=== PATIENT | female | born 1950 | race Caucasian/White ===

== ENCOUNTER → 2016-07-14 | Outpatient (CLI) | payer OTHER ==
[2013-01-18 18:41] VITALS: BP 122/62
--- NOTE | 2016-07-14 14:36 | RAD ---
History: Low back pain. Study: Five views lumbar spine including AP and lateral neutral flexion and extension views Comparison: October 15, 2015 Findings: There are posterior fusion rods and screws from L1-L3 with anatomical alignment. There are disk spacers at L3-4 and L4-5 as before. There is normal mobility on flexion and extension without subluxation. There is severe L1-2 disc space narrowing. There is vascular calcification without aneu rysm. There are surgical clips in the region of the gastroesophageal junction. There is a partially visualized left hip prosthesis. Impression: Postsurgical changes in upper lumbar posterior fusion in anatomical alignment and stable on flexion and extension. Reported By:
== END ==
LOC: RAD 10:57
PROVIDERS: ATTEND Neurological Surgery
DX: M54.17 Radiculopathy, lumbosacral region (principal)
CPT/HCPCS: 72120

== ENCOUNTER → 2016-08-17 | Outpatient (CLI) | payer OTHER ==
[2013-01-18 18:41] VITALS: BP 122/62
--- NOTE | 2016-08-18 08:38 | VAS ---
HISTORY: Left leg edema. Study: Bilateral lower extremity ultrasound. Comparison: None. TECHNIQUE: Multiple leos scale and color flow Doppler images of the deep venous system were obtaine d of the right and left lower extremity. FINDINGS: The deep venous system of the right and left lower extremities were evaluated from the level of the common femoral vein through the popliteal vein. Normal color flow and augmentation can be observed. In addition, normal compression is seen throughout the deep venous system. IMPRESSION: 1. Negative for DVT. Reported By:
== END ==
LOC: RAD 17:08
PROVIDERS: ATTEND Nurse Practitioner Family
DX: R60.0 Localized edema (principal); M79.604 Pain in right leg; M79.605 Pain in left leg
CPT/HCPCS: 93970

== ENCOUNTER 2016-09-07 09:13 | Inpatient (IN) | payer OTHER ==
[2016-09-07] MEDS ORDERED: PHENERGAN INJ 25 MG IV PRN (09:46)
[2016-09-07] MEDS ORDERED: LEVAQUIN PREMIX IV 500 MG 500 MG/100 ML BAG IV ONE (09:46)
[2016-09-07] MEDS ORDERED: PEPCID 20 MG IV PREMIX* 20 MG/50 ML BAG IV SCH (10:00)
[2016-09-07 10:53] LABS: BILIRUBIN,URINE NEGATIVE (NEGATIVE); BLOOD/HEMOGLOBIN,URINE 1+ (NEGATIVE); GLUCOSE, URINE NEGATIVE (NEGATIVE); KETONES,URINE NEGATIVE (NEGATIVE); LEUKOCYTE ESTERASE ,URINE 1+ (NEGATIVE); NITRITES,URINE POSITIVE (NEGATIVE); PROTEIN,URINE NEGATIVE (NEGATIVE); UROBILINOGEN,URINE NORMAL (NORMAL)
[2016-09-07 10:59] LABS: APPEARANCE,URINE HAZY (CLEAR); COLOR,URINE YELLOW (YELLOW)
[2016-09-07 11:00] LABS: BACTERIA,URINE 3+ /HPF (NEGATIVE); RBC,URINE 0 /HPF (NEGATIVE); SQUAMOUS EPITHELIAL CELL,UR RARE /HPF (NEGATIVE)
--- NOTE | 2016-09-07 11:05 | VAS ---
HISTORY: Bilateral lower extremity edema. Study: Bilateral lower extremity ultrasound Comparison: Bilateral lower extremity ultrasound dated August 17, 2016. TECHNIQUE: Multiple leos scale and color flow Doppler images of the deep venous system were obtaine d of the bilateral lower extremity. FINDINGS: The deep venous system of the right and left lower extremities were evaluated from the level of the common femoral vein through the popliteal vein. Normal color flow and augmentation can be observed. In addition, normal compression is seen throughout the deep venous system. IMPRESSION: 1. Negative for DVT. Reported By:
--- NOTE | 2016-09-07 11:05 | RAD ---
HISTORY: Bilateral lower extremity edema Study: Chest 1-view Comparison: May 03, 2016 Findings: The trachea is midline. The cardiac silhouette is unremarkable. The lungs are mildly hyperinflated but free of acute alveolar infiltrates. No pleural effusions are identified. The bony thorax is un remarkable. IMPRESSION: Lungs mildly hyperinflated but clear Reported By:
[2016-09-07 11:06] LABS: ALANINE AMINOTRANSFERASE 19 Units/L (12-78); ALBUMIN 2.4 g/dL (3.4-5.0); ALKALINE PHOSPHATASE 95 Units/L (46-116); ASPARTATE AMINO TRANSFERASE 19 Units/L (15-37); BLOOD UREA NITROGEN 32 mg/dL (7-18); CALCIUM 7.7 mg/dL (8.5-10.1); CARBON DIOXIDE 24.7 mmol/L (21-32); CHLORIDE 109 mmol/L (98-107); CREATININE 1.19 mg/dL (0.55-1.02); GLUCOSE 103 mg/dL (65-99); SODIUM 141 mmol/L (136-145); TOTAL PROTEIN 6.1 g/dL (6.4-8.2); eGFR BLACK RACES 58 (>60); eGFR NON BLACK RACES 48 (>60)
[2016-09-07 11:07] LABS: BASOPHILS # (AUTO) 0.1 X10^3/uL (0.0-0.1); BASOPHILS % (AUTO) 0.6 % (0.2-1.0); EOSINOPHILS # (AUTO) 0.1 x10^3/uL (0.0-0.2); EOSINOPHILS % (AUTO) 0.6 % (0.9-2.9); HEMOGLOBIN 10.6 g/dL (12.0-16.0); LYMPHOCYTES % (AUTO) 8.8 % (21.0-51.0); MEAN CORPUSCULAR HEMOGLOBIN 32.1 pg (27.0-34.0); MEAN CORPUSCULAR HGB CONC 33.1 g/dL (33.0-35.0); MEAN PLATELET VOLUME 8.1 fL (7.4-11.0); MONOCYTES # (AUTO) 0.9 x10^3/uL (0.3-0.8); MONOCYTES % (AUTO) 7.5 % (0.0-13.0); NEUTROPHILS # (AUTO) 9.7 x10^3/uL (2.2-4.8); NEUTROPHILS % (AUTO) 82.5 % (42.0-75.0); PLATELET COUNT 453 X10^3/uL (150.0-450.0); RED BLOOD COUNT 3.29 X10^6/uL (3.5-5.4); RED CELL DISTRIBUTION WIDTH 15.1 % (11.6-16.5); WHITE BLOOD COUNT 11.7 X10^3/uL (3.6-10.0)
[2016-09-07] MEDS: LASIX IVP SCH ×2 (11:08→20:50)
[2016-09-07] MEDS ORDERED: NS 100 ML IV 100 ML IV ONE (11:10)
[2016-09-07 11:25] VITALS: BMI 23.3
[2016-09-07] MEDS ORDERED: PREVNAR 13 IM ONE (11:25)
[2016-09-07] MEDS ORDERED: AMBIEN PO PRN (11:30)
[2016-09-07] MEDS ORDERED: ATIVAN TAB 1 MG PO PRN (11:30)
[2016-09-07] MEDS ORDERED: VALIUM PO PRN (11:43)
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
[2016-09-07] MEDS: PERCOCET TAB 5/325 MG PO PRN ×2 (18:47→22:33)
[2016-09-07] MEDS ORDERED: KLONOPIN TAB 1 MG PO SCH (21:00)
[2016-09-07] MEDS ORDERED: ELAVIL PO SCH (21:00)
[2016-09-07] MEDS ORDERED: PATIENT'S HOME MEDICATION PO SCH (21:00)
[2016-09-07] MEDS ORDERED: FLOMAX PO SCH (21:00)
[2016-09-07] MEDS ORDERED: DESYREL PO SCH (21:00)
[2016-09-07] MEDS ORDERED: COLACE CAP 100 MG PO PRN (22:02)
[2016-09-07] MEDS ORDERED: MILK OF MAGNESIA PO PRN (22:02)
[2016-09-08 05:44] LABS: ALANINE AMINOTRANSFERASE 17 Units/L (12-78); ALBUMIN 2.5 g/dL (3.4-5.0); ALKALINE PHOSPHATASE 95 Units/L (46-116); ASPARTATE AMINO TRANSFERASE 17 Units/L (15-37); BLOOD UREA NITROGEN 32 mg/dL (7-18); CALCIUM 8.1 mg/dL (8.5-10.1); CARBON DIOXIDE 31.3 mmol/L (21-32); CHLORIDE 104 mmol/L (98-107); COR CA(FOR HYPOALB) 9.3 mg/dL (8.5-10.1); CREATININE 1.25 mg/dL (0.55-1.02); GLUCOSE 94 mg/dL (65-99); SODIUM 142 mmol/L (136-145); TOTAL PROTEIN 6.4 g/dL (6.4-8.2); eGFR BLACK RACES 55 (>60); eGFR NON BLACK RACES 46 (>60)
[2016-09-08 06:08] LABS: BASOPHILS # (AUTO) 0.1 X10^3/uL (0.0-0.1); BASOPHILS % (AUTO) 0.7 % (0.2-1.0); EOSINOPHILS # (AUTO) 0.2 x10^3/uL (0.0-0.2); EOSINOPHILS % (AUTO) 1.4 % (0.9-2.9); HEMATOCRIT 34.7 % (36.0-47.0); HEMOGLOBIN 11.5 g/dL (12.0-16.0); LYMPHOCYTES % (AUTO) 26.1 % (21.0-51.0); MEAN CORPUSCULAR HEMOGLOBIN 31.8 pg (27.0-34.0); MEAN CORPUSCULAR VOLUME 96.3 fL (80.0-100.0); MEAN PLATELET VOLUME 8.6 fL (7.4-11.0); MONOCYTES % (AUTO) 8.3 % (0.0-13.0); NEUTROPHILS # (AUTO) 7.2 x10^3/uL (2.2-4.8); NEUTROPHILS % (AUTO) 63.5 % (42.0-75.0); PLATELET COUNT 484 X10^3/uL (150.0-450.0); RED CELL DISTRIBUTION WIDTH 14.8 % (11.6-16.5); WHITE BLOOD COUNT 11.4 X10^3/uL (3.6-10.0)
[2016-09-08 06:10] LABS: IRON 36 ug/dL (50-175); TRANSFERRIN 165 mg/dL (202-364)
[2016-09-08] MEDS ORDERED: AMBIEN PO PRN (08:39)
[2016-09-08] MEDS ORDERED: ATIVAN TAB 1 MG PO PRN (08:39)
[2016-09-08] MEDS ORDERED: PATIENT'S HOME MEDICATION (Clonazepam [Clonazepam] 1 TAB) PO SCH (09:00)
[2016-09-08] MEDS ORDERED: PEPCID 20 MG IV PREMIX* 20 MG/50 ML BAG IV SCH (09:00)
[2016-09-08] MEDS ORDERED: LEVAQUIN PREMIX IV 500 MG 500 MG/100 ML BAG IV SCH (09:00)
[2016-09-08] MEDS: LASIX IVP SCH (10:23)
[2016-09-08] MEDS: PERCOCET TAB 5/325 MG PO PRN (11:51)
[2016-09-08 12:59] VITALS: BP 108/65
[2016-09-08] MEDS ORDERED: TORADOL 30 MG VIAL IVP ONE (14:19)
[2016-09-08] MEDS ORDERED: DESYREL PO SCH (21:00)
[2016-09-08] MEDS ORDERED: ELAVIL PO SCH (21:00)
== END 2016-09-08 15:50 | disposition home or self-care (01) | DRG 603 ==
LOC: MED/SURG 09:13
PROVIDERS: ADMIT Internal Medicine; ATTEND Internal Medicine
PROC: 3E0234Z Introduction of Serum, Toxoid and Vaccine into Muscle, Percutaneous Approach (ICD-10-PCS; principal; 2016-09-07)
DX: L03.116 Cellulitis of left lower limb (principal); K21.9 Gastro-esophageal reflux disease without esophagitis; N39.0 Urinary tract infection, site not specified; R60.0 Localized edema; I10 Essential (primary) hypertension; M13.89 Other specified arthritis, multiple sites; B95.2 Enterococcus as the cause of diseases classified elsewhere; R26.89 Other abnormalities of gait and mobility; Z23 Encounter for immunization
CPT/HCPCS: 36415; 71010; 80053; 81001; 82607; 82728; 82746; 83540; 83735; 84466; 85025; 87070; 87075; 87086; 87088; 87186; 87205; 93005; 93010; 93970; A4222; S0028; 90670; J1885; J1940; J1956